=== PATIENT | male | born 1970 | race African-American/Black ===

== ENCOUNTER 2018-06-25 15:04 | Emergency (ER) | payer MEDICARE, OTHER ==
[~2018-06-25] VITALS: Ht 188 cm; Wt 104.3 kg
[2018-06-25] MEDS ORDERED: CATAPRES0.1 MG ORAL (15:14)
[2018-06-25 15:15] VITALS: BP 132/82
--- NOTE | 2018-06-25 15:15 | NUR ---
ED Nurse Note: walked in to ED due to possible bug bites on right lower leg.
--- NOTE | 2018-06-25 15:46 | Emergency Room Report ---
History of Present Illness General Chief Complaint: Skin Rash/Abscess Source: Medical Record Present Illness HPI 47-year-old male presents to the emergency department complaining of 8 out of 10 in severity itchy/burning rash to bilateral wrists and interdigital areas. Patient also is reporting presumed bug bites on the right lower extremity. He denies calf pain, shortness of breath or chest pain. Pt. denies fevers, chills or swollen tender lymph nodes. Denies lesions/rashes elsewhere on the body. Denies new medications or body washes or creams. Denies swelling of the lips, tongue , throat or airway. Denies wheezing, or shortness of breath. Denies recent travel, recent illness or ill contacts. denies blisters, oral lesions, or sloughing of the skin. Allergies: Coded Allergies: No Known Allergies (Unverified , 06/25/18) Patient History Past Medical History: see triage record, other - developmental delay- high functioning Past Surgical History: none Pertinent Family History: none Reviewed Nursing Documentation: PMH: Agreed; PSxH: Agreed Nursing Documentation-PMH Past Medical History: No History, Except For Hx Cardiac Problems: Yes Review of Systems All Other Systems: negative except mentioned in HPI Physical Exam Vital Signs Date Time Temp Pulse Resp B/P (MAP) Pulse Ox O2 Delivery O2 Flow Rate FiO2 06/25/18 15:11 98.8 105 18 138/85 97 Room Air Sp02 EP Interpretation: reviewed, normal General Appearance: no apparent distress, alert, GCS 15, non-toxic Head: normocephalic, atraumatic Eyes: bilateral eye normal inspection, bilateral eye PERRL ENT: hearing grossly normal, normal pharynx, no angioedema, normal voice, other Neck: full range of motion Respiratory: lungs clear, normal breath sounds, no wheezing, speaking full sentences Cardiovascular #1: regular rate, rhythm, no edema, normal capillary refill Musculoskeletal: back normal, gait/station normal - with cane assistance, normal range of motion, non-tender Neurologic: alert, oriented x3, responsive, motor strength/tone normal, sensory intact, normal gait - with cane assistance, speech normal, grossly normal Psychiatric: judgement/insight normal Skin: normal color, warm/dry, well hydrated, rash - papular excoriated rash on the volar aspect of the wrists bilaterally and interdigital spaces. no blisters or vessicles. no erythema, warmth or tenderness. , other - Pt. has visible varicose veins, no evidence of insect bitesof the LE Lymphatic: no adenopathy Medical Decision Making PA Attestation Dr. Plasencia is my supervising Physician whom patient management has been discussed with. Diagnostic Impression: Primary Impression: Rash and other nonspecific skin eruption Additional Impression: Varicose veins of both lower extremities Qualified Codes: I83.93 - Asymptomatic varicose veins of bilateral lower extremities ER Course 47-year-old male presents to the emergency department complaining of 8 out of 10 in severity itchy/burning rash to bilateral wrists and interdigital areas. Patient also is reporting presumed bug bites on the right lower extremity. He denies calf pain, shortness of breath or chest pain. Pt. denies fevers, chills or swollen tender lymph nodes. Denies lesions/rashes elsewhere on the body. Denies new medications or body washes or creams. Denies swelling of the lips, tongue , throat or airway. Denies wheezing, or shortness of breath. Denies recent travel, recent illness or ill contacts. denies blisters, oral lesions, or sloughing of the skin. Ddx considered but are not limited to cellulitis, scabies, shingles, varicella, dermatitis, urticaria, eczema, tinea, viral exanthem, SJS Vital signs: are WNL, pt. is afebrile H&PE are most consistent with presumed scabies of the UE due to distribution, and Varicose veins of the LE, no evidence of bug bites on the LE, no evidence of infection or rash. ORDERS: none required at this time, the diagnosis is clinical ED INTERVENTIONS: None required at this time. -I do not identify an emergent condition at this time. With current presentation , pt. is stable for close outpatient follow up and conservative treatment. D/ w pt. to return promptly to ED with worsening or new symptoms.- Pt. verbalizes' understanding and agreement with proposed treatment plan. DISCHARGE: At this time pt. is stable for d/c to home. Will provide printed patient care instructions, and any necessary prescriptions. Care plan and follow up instructions have been discussed with the patient prior to discharge. Last Vital Signs Date Time Temp Pulse Resp B/P (MAP) Pulse Ox O2 Delivery O2 Flow Rate FiO2 06/25/18 15:11 98.8 105 18 138/85 97 Room Air Disposition: HOME, SELF-CARE Condition: Stable Scripts Triamcinolone Acet (Triamcinolone Acetonide) 15 Gm Cream..g. 15 GM APPLIC TID, #15 GM Prov: Brittni Vargas 06/25/18 Diphenhydramine Hcl (BENADRYL ALLERGY) 25 Mg Tablet 25 MG PO Q6HR, #20 TAB Prov: Brittni Vargas 06/25/18 Permethrin* (ELIMITE*) 60 Gm Cream..g. 1 APPLIC TOPIC ONCE, #60 GM 0 Refills Apply cream from head to toe; leave on for 8-14 hours before washing off with water; may reapply in 1 week if live mites appear. Prov: Brittni Vargas 06/25/18 Patient Instructions: Rash, Varicose Veins Additional Instructions: Take medications as directed. Follow up with a Primary Care Provider in 3-5 days, even if your symptoms have resolved. --Please review list of primary care clinics, if you do not already have a primary care provider Return sooner to ED if new symptoms occur, or current symptoms become worse. Do not drink alcohol, drive, or operate heavy machinery while taking Benadryl as this may cause drowsiness. - Please note that this Emergency Department Report was dictated using [employer] tender technology software, occasionally this can lead to erroneous entry secondary to interpretation by the dictation equipment. Brittni Vargas Jun 25, 2018 15:46
[2018-06-25] MEDS ORDERED: PERMETHRIN60 GM TOPIC (15:48)
[2018-06-25] MEDS ORDERED: KENALOG 0.5% CR15 GM APPLIC (15:48)
[2018-06-25] MEDS ORDERED: BENADRYL ALLERG25 M1 PO (15:48)
[2018-06-25 15:50] VITALS: BP 125/76
--- NOTE | 2018-06-25 16:00 | NUR ---
ED Nurse Note: A/Ox4. Pt is cleared by KAYKAY Elkins. DC instruction and prescriptions given, pt verbalized understanding. IV/ID wristband removed. All belongings taken by pt. Denies pain at this time. Pt ambulated out of ER with steady gait.
== END 2018-06-25 16:00 | disposition home or self-care (01) ==
LOC: EMR 15:40
DX: R21 Rash and other nonspecific skin eruption (principal); I83.93 Asymptomatic varicose veins of bilateral lower extremities
CPT/HCPCS: 99282